=== PATIENT | male | born 1965 | race African-American/Black ===

== ENCOUNTER 2022-06-24 23:10 | Emergency (ER) | payer MEDICAID ==
[~2022-06-24] VITALS: Ht 182.9 cm; Wt 105.3 kg
[2022-06-24] MEDS ORDERED: B50 PO (23:30)
[2022-06-24 23:57] VITALS: BP 136/74
== END 2022-06-24 23:58 | disposition home or self-care (01) ==
LOC: ER 23:10
DX: R44.0 Auditory hallucinations (principal); Z59.00 Homelessness unspecified
CPT/HCPCS: 99281